=== PATIENT | female | born 1980 | race Caucasian/White ===

== ENCOUNTER 2018-04-07 21:55 | Inpatient (IN) | payer MEDICAID, SELFPAY ==
[2018-04-07 22:21] VITALS: BMI 34.4
[2018-04-07 22:51] LABS: Hematocrit 41.9 % (37-47); Hemoglobin 14.2 g/dl (12.0-15.0); Mean Corp Hgb Conc 33.9 g/gl (32-36); Mean Corpuscular Hgb 27.1 pg (27.0-32.0); Mean Platelet Vol. 12.1 fl (6.2-12.0); Platelet Count 207 K/mm3 (150-450); RBC Distribution Width CV 12.8 % (11.6-14.6); RBC Distribution Width SD 36.7 fl (35.1-43.9); Red Blood Count 5.24 M/mm3 (4.2-5.4)
[2018-04-07 22:54] LABS: Scan Indicated on CBC? Y/N NO
[2018-04-07] MEDS: Oxytocin 30 units/NS 500 ml 30 UNITS/500 ML IV.SOLN 334 UNITS IV (23:04)
[2018-04-07] MEDS: Methylergonovine 0.2 MG/ML Ampul IM (23:09)
--- NOTE | 2018-04-07 23:12 | PCM.HP.OB ---
History Date of Admission: 04/07/18 Final TEHRESA: 04/04/18 Final THERESA Source: US <20 weeks Gestational age: 40 Weeks and 3 Days History of this : This is a 37 year-old, , at 40.3 weeks gestational age c/o contractions since 8:30pm - on arrival SROM with Meconium and found to be 5cm- pt quickly progressed to fully dilated. Allergies No Known Allergies Allergy (Verified 10/29/15 09:06) Home Medications: Home Medications Amoxicillin 500 mg PO Q8 #30 tablet 07/04/14 Hydrocodone Bitart/Apap 5-325 [[place] 5/325] 1 - 2 tablet PO Q4H PRN PRN #20 tablet 07/04/14 Naproxen [Naprosyn] 500 mg PO BID PRN #20 tablet 10/29/15 Smoking Status: Current some day smoker Alcohol: None Number of Fetus(es): 1 Heart Tracins TOCO Analysis: palpable q2-3 History Past Pregnancies: Past Pregnancies Delivery Date Name GA/Weeks Outcome Route Weight Gender Labor Length Anesthesia Delivery Location Provider FOB Labs: A-, GBS neg, HIV neg, HEPB neg, rub imm, syphilis neg Expected Infant Delivery Method: Spontaneous Vaginal Physical Exam General: Alert, Oriented x3 Abdomen: Soft, Gravid Neurological: Cranial nerves II-XII grossly intact 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
--- NOTE | 2018-04-07 23:17 | HP.PCM_ITS ---
History Date of Admission: 04/07/18 Final THERESA: 04/04/18 Final THERESA Source: US <20 weeks Gestational age: 40 Weeks and 3 Days History of this : This is a 37 year-old, , at 40.3 weeks gestational age c/o contractions since 8:30pm - on arrival SROM with Meconium and found to be 5cm- pt quickly progressed to fully dilated. Allergies No Known Allergies Allergy (Verified 10/29/15 09:06) Home Medications: Home Medications Amoxicillin 500 mg PO Q8 #30 tablet 07/04/14 Hydrocodone Bitart/Apap 5-325 [[place] 5/325] 1 - 2 tablet PO Q4H PRN PRN #20 tablet 07/04/14 Naproxen [Naprosyn] 500 mg PO BID PRN #20 tablet 10/29/15 Smoking Status: Current some day smoker Alcohol: None Number of Fetus(es): 1 Heart Tracins TOCO Analysis: palpable q2-3 History Past Pregnancies: Past Pregnancies Delivery Date Name GA/Weeks Outcome Route Weight Gender Labor Length Anesthesia Delivery Location Provider FOB Labs: A-, GBS neg, HIV neg, HEPB neg, rub imm, syphilis neg Expected Infant Delivery Method: Spontaneous Vaginal Physical Exam General: Alert, Oriented x3 Abdomen: Soft, Gravid Neurological: Cranial nerves II-XII grossly intact 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
--- NOTE | 2018-04-07 23:17 | PCM.OB.VAG ---
Vaginal Delivery Maternal Presentation: Active Labor, Spontaneous Rupture of Membranes Amniotic Membrane Rupture Type: Spontaneous Amniotic Fluid Description: Lightly stained meconium Final THERESA: 04/04/18 Gestational age: 40 Weeks and 3 Days Date of Procedure: 04/07/18 Pre-Operative Diagnosis: term , SROM, spontaneous labor Post-Operative Diagnosis: same, live female Surgery/ Procedure Performed: Spontaneous Vaginal Delivery Type of Anesthesia: None Description of Procedure: On my arrival patient was found to be complete- Pt with good maternal efforts for pushing- delivered with compound presentation noted. No complication with delivery. Infant vigorous at . Delayed cord clamping performed. Presentation: Vertex Placental Delivery Description: Spontaneous Placenta Disposition: [facility] Cord Vessel Description: 3 Vessels Nuchal Cord Compression: Without compression Cord Entanglement: None Estimated Blood Loss: 400 Infant A gender: Female (1 minute): 8 (5 minute): 9 Episiotomy Description: None Laceration: None Medications given after delivery: IV Pitocin, IM Methergin Complications: None
--- NOTE | 2018-04-07 23:30 | DCINST_ITS ---
Discharge Diet: No Restrictions Discharge Activity: Return to Normal Activity, May not drive while taking narcotic pain medications., May Shower May resume sexual activity in: 4-6 weeks Additional Activity Instructions:: Nothing in the vagina for 4-6 weeks. You may return to work/school in 6 weeks. Call your doctor if your incision/area has: Continuous Slow Oozing, Sudden Increased Bleeding, Increased Pain/ Swelling, Increased Redness, Foul Smelling Discharge Additional Instructions: If you experience any of the following, contact your healthcare provider. * Bleeding that soaks a pad every hour for 2 hours * Fever 100.4 or higher * Unrelieved incision or abdominal pain * Swelling, redness, discharge or bleeding from your incision or episiotomy site * Your incision begins to separate * Problems urinating (including inability to urinate or burning while urinating) . * Visual changes * Severe headache * Flu-like symptoms * Pain or redness in one of both of your breasts * Pain, warmth, tenderness or swelling in your legs, especially the calf area * Frequent nausea and vomiting * Symptoms of depression or anxiety If you experience any of the following, call 911 or go to the nearest Emergency Room. * Chest pain * Problems breathing * Seizure activity * Partial or complete paralysis of a body part, slurred speech, weakness or drooping of the face, or a sudden inability to walk or hold your balance Allergies/Adverse Reactions: Allergies No Known Allergies Allergy (Verified 10/29/15 09:06) Medications to take at Discharge Naproxen [Naprosyn] 250 - 500 mg PO Q8H PRN PRN #30 tab 04/07/18 The following prescriptions were given: Naproxen [Naprosyn] 250 - 500 mg PO Q8H PRN PRN #30 tab PRN Reason: MILD PAIN (1-310) When: Call to make an appointment with your doctor in 6 weeks. If you had elevated Blood Pressure or 4th degree laceration you will need to be seen in 2 weeks. Primary Care Physician: Care Physician,No Primary [Primary Care Provider] - Test Results: Test results from this visit will be discussed in further detail at your follow- up appointment, if applicable.
[2018-04-07] MEDS: Oxytocin 30 units/NS 500 ml 30 UNITS/500 ML IV.SOLN 167 UNITS IV (23:35)
[2018-04-08 04:00] VITALS: BP 138/78; PULSE 70; RESP 16; TEMP 36.4; O2SAT 99
[2018-04-08] MEDS: Naproxen 250 MG Tablet PO ×2 (05:20→13:16)
--- NOTE | 2018-04-08 07:57 | PCM.PN.OB ---
Subjective: pt seen at bedside, doing well. lochia mild. bottle feeding. - Physical Exam General: Alert, Oriented x3 Abdomen: Soft, Non Tender, Non-Distended, - - fundus firm. Extremities: No Calf Tenderness Vital Signs Temp Pulse Resp BP Pulse Ox 97.6 F L 70 16 138/78 H 99 04/08/18 04:00 04/08/18 04:00 04/08/18 04:00 04/08/18 04:00 04/08/18 04:00 Oxygen Delivery Method Room Air Weight: 99.79 kg Body Mass Index (BMI) 34.4 Laboratory Tests Past 24 Hrs 04/07/18 04/07/18 04/08/18 22:30 22:30 02:00 WBC 18.0 H RBC 5.24 Hgb 14.2 Hct 41.9 MCV 80.0 L MCH 27.1 MCHC 33.9 RDW 12.8 RDW Differential 36.7 Plt Count 207 MPV 12.1 H Blood Type A NEGATIVE Antibody Screen NEGATIVE Screen NEGATIVE Baby's Blood Type O POSITIVE Baby's RUBIA NEGATIVE Medical Necessity - Tobacco Use Smoking Status: Former smoker Assessment/Plan PPD#1, doing well routine care pain mgmt
[2018-04-08 09:00] VITALS: BP 132/76; PULSE 62; RESP 20; TEMP 36
[2018-04-08] MEDS: Acetaminophen 500 MG Tablet 1000 MG PO ×2 (09:15→17:51)
[2018-04-08 13:20] VITALS: BP 132/75; PULSE 65; RESP 18; TEMP 36.3
[2018-04-08 16:30] VITALS: BP 122/75; PULSE 73; RESP 18; TEMP 36.2
[2018-04-08 21:00] VITALS: BP 131/85; PULSE 62; RESP 16; TEMP 36.2; O2SAT 99
[2018-04-09 03:00] VITALS: BP 124/76; PULSE 64; RESP 18; TEMP 36.8; O2SAT 100
[2018-04-09 08:00] VITALS: BP 127/85; PULSE 68; RESP 16; TEMP 36.3
--- NOTE | 2018-04-09 09:15 | PCM.PN.OB ---
Subjective: No complaints - Physical Exam General: Alert, Oriented x3 Abdomen: Soft, Non Tender - ff mid & below umb, Non-Distended Extremities: No Calf Tenderness Vital Signs Temp Pulse Resp BP Pulse Ox 98.2 F 64 18 124/76 H 100 04/09/18 03:00 04/09/18 03:00 04/09/18 03:00 04/09/18 03:00 04/09/18 03:00 Oxygen Delivery Method Room Air Weight: 220 lb Body Mass Index (BMI) 34.4 Medical Necessity - Tobacco Use Smoking Status: Former smoker Assessment/Plan PPD#2 D/c home
[2018-04-09] MEDS: Naproxen 250 MG Tablet PO (10:19)
[2018-04-09 12:00] VITALS: BP 120/80; PULSE 70; RESP 18; TEMP 36.6
[2018-04-09 13:15] VITALS: BP 120/80; PULSE 70; RESP 18; TEMP 36.6
== END 2018-04-09 13:15 | disposition home or self-care (01) | DRG 373 ==
PROVIDERS: Admitting Provider Obstetrics & Gynecology; Visit Provider Obstetrics & Gynecology
DX: O42.02 Full-term premature rupture of membranes, onset of labor within 24 hours of rupture (principal); O77.0 Labor and delivery complicated by meconium in amniotic fluid; Z3A.40 40 weeks gestation of pregnancy; Z37.0 Single live birth; Z87.891 Personal history of nicotine dependence
CPT/HCPCS: 59025; 59050; 85027; 85461; 86850; 86900; 90384; 99218; G0378; J2790

== ENCOUNTER 2018-06-24 05:45 | Day surgery (SDC) | payer MEDICAID, SELFPAY ==
[2018-06-24 06:07] LABS: Internal QC Validated? YES +Cl - CLEAR BKGD
[2018-06-24 06:08] LABS: Pregnancy, Urine Negative Negative
[2018-06-24 06:14] VITALS: BP 128/74; PULSE 70; RESP 16; TEMP 36.8; O2SAT 100; BMI 32.5
[2018-06-24 07:20] LABS: Hematocrit 40.1 % (37-47); Hemoglobin 12.8 g/dl (12.0-15.0); Mean Corp Hgb Conc 31.9 g/gl (32-36); Mean Corpuscular Hgb 26.4 pg (27.0-32.0); Mean Corpuscular Volume 82.7 fL (81-99); Mean Platelet Vol. 10.8 fl (6.2-12.0); Platelet Count 233 K/mm3 (150-450); RBC Distribution Width CV 12.4 % (11.6-14.6); RBC Distribution Width SD 37.6 fl (35.1-43.9); Red Blood Count 4.85 M/mm3 (4.2-5.4); White Blood Count 7.4 K/mm3 (4.4-11.0)
[2018-06-24 07:22] LABS: Scan Indicated on CBC? Y/N NO
--- NOTE | 2018-06-24 07:30 | FALS_PTH ---
PATIENT: CHANNING TURCIOS LOC: [facility] [place] U#:[id number] AGE/SX: 38/F ROOM: RE06/24/[address]: Dr. Aimee Grajeda, MDDOB: 1980 BED: DIS: 06/24/2018 SPEC #: [id number] RECD: 06/24/18 10:40 STATUS: MARK RENEE #: [id number] LEE: 06/24/18 07:[address]: Aimee Grajeda DEPT: SURGICAL PATHOLOGY RECD BY: Vicente Newsome ENTERED: 06/24/18 11:32 SP TYPE: FALL TUBES OTHR DR: Lynn Primary Care Phys Tissues: Fallopian tube Procedures: Surgery Specimen Level IV HEADER OPERATION: Laparoscopic salpingectomy PRE-OP DIAGNOSIS: Desires sterilization TISSUE SUBMITTED: Bilateral fallopian tubes MICROSCOPIC DIAGNOSIS Bilateral fallopian tubes, salpingectomy: Bilateral fallopian tubes including fimbrial ends with focal mild to moderate acute and chronic inflammation. ZURI:alma 06/25/18 COMMENT Clinical correlation and appropriate follow up are necessary. MICROSCOPIC DESCRIPTION Slides are reviewed. GROSS DESCRIPTION Received is one container labeled with the patient's name and designated bilateral fallopian tubes. The specimen consists of bilateral fallopian tubes including fimbrial ends. One of the fallopian tubes measures 5 cm in length and 0.5 cm in diameter. Sections reveal unremarkable cut surfaces. The second fallopian tube is received in two pieces measuring 1.5 cm in length and 4.5 cm in length and 0.5 cm in diameter. Sections reveal unremarkable cut surfaces. Picture Framer sections are submitted in two cassettes with each cassette containing one fallopian tube. / ZURI:alma 06/24/18 TC:2 CPT: 55600 x2
[2018-06-24] MEDS: Bupivacaine Mpf 0.5% 30 ML VIAL (07:58)
--- NOTE | 2018-06-24 08:01 | PCM.OPRPT ---
Report of Operation Date of Procedure: 06/24/18 Pre-Operative Diagnosis: desires sterilization Post-Operative Diagnosis: same Surgery/Procedure Performed:: laparoscopic bilateral salpingectomy Description of Surgical Findings:: normal ovaries and tubes bilaterally. 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 She was then placed in the [facility] stirrups and she was prepped and draped in normal sterile fashion. Bladder was drained prior to the start of procedure approximately 75cc of clear yellow urine was expelled. At this time attention was turned to the vaginal portion where weighted speculum placed at posterior fornix vagina single-tooth tenaculum was used to gently grasp the internal the cervix. uterus was gently sounded to approximately 8cm. Uterine manipulator was placed without difficulty. Legs then placed in parallel with the abdomen the tenaculum and the weighted speculum were removed. 2 towel clamps were placed at umbilicus. After marcaine was injected at umbilicus a small incision was made and a 5 mm trocar was placed under direct visualization. CO2 gas was used to insufflate the intra-abdominal cavity. Upon inspection no gross abnormalities uterus tubes and ovaries appeared to be normal. At this time then the RLQ and LLQ ports were placed again Marcaine was injected small incision was made a knife and the 5 mm trocar was placed. . At this time then tubes were traced back to the fimbriated ends. Ligasure was used to coagulate and ligate along mesosalpinx bilaterally until tubes removed completely. Good hemostasis was appreciated. At this time procedure was deemed complete successful. The gas was desufflated on from the intra-abdominal cavity. The trochars were removed. Skin was closed using 4-0 Monocryl in a subcutaneous fashion. Dermabond glue was placed. Instrument lap and needle counts were correct ?2. The uterine manipulator was removed. Vaginal sweep was performed it was negative. There were no complications anticipated normal postoperative course for this patient. - Complications none - Admit VTE Documentation VTE Present on Admission: Yes VTE Mechan Device Prophylaxis: SCD's VTE Pharm Prophylaxis ordered?: No
--- NOTE | 2018-06-24 08:05 | OP.PCM_ITS ---
Report of Operation Date of Procedure: 06/24/18 Pre-Operative Diagnosis: desires sterilization Post-Operative Diagnosis: same Surgery/Procedure Performed:: laparoscopic bilateral salpingectomy Description of Surgical Findings:: normal ovaries and tubes bilaterally. 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 She was then placed in the [facility] stirrups and she was prepped and draped in normal sterile fashion. Bladder was drained prior to the start of procedure approximately 75cc of clear yellow urine was expelled. At this time attention was turned to the vaginal portion where weighted speculum placed at posterior fornix vagina single-tooth tenaculum was used to gently grasp the internal the cervix. uterus was gently sounded to approximately 8cm. Uterine manipulator was placed without difficulty. Legs then placed in parallel with the abdomen the tenaculum and the weighted speculum were removed. 2 towel clamps were placed at umbilicus. After marcaine was injected at umbilicus a small incision was made and a 5 mm trocar was placed under direct visualization. CO2 gas was used to insufflate the intra-abdominal cavity. Upon inspection no gross abnormalities uterus tubes and ovaries appeared to be normal. At this time then the RLQ and LLQ ports were placed again Marcaine was injected small incision was made a knife and the 5 mm trocar was placed. . At this time then tubes were traced back to the fimbriated ends. Ligasure was used to coagulate and ligate along mesosalpinx bilaterally until tubes removed completely. Good hemostasis was appreciated. At this time procedure was deemed complete successful. The gas was desufflated on from the intra-abdominal cavity. The trochars were removed. Skin was closed using 4-0 Monocryl in a subcutaneous fashion. Dermabond glue was placed. Instrument lap and needle counts were correct ?2. The uterine manipulator was removed. Vaginal sweep was performed it was negative. There were no complications anticipated normal postoperative course for this patient. - Complications none - Admit VTE Documentation VTE Present on Admission: Yes VTE Mechan Device Prophylaxis: SCD's VTE Pharm Prophylaxis ordered?: No
--- NOTE | 2018-06-24 08:07 | DCINST_ITS ---
Discharge Diet: No Restrictions, - - Increase fluid intake for 48 hours. Discharge Activity: Return to Normal Activity, May Drive - when you are no longer taking narcotic pain medications., May Shower, May Take a Tub Bath - in 7 days., - - Ambulate often the next week after surgery. May resume sexual activity in: 2 weeks Lifting Restrictions: 25 Additional Activity Instructions:: Nothing in the vagina for the next 5 days. Call your doctor if your incision/area has: Continuous Slow Oozing, Sudden Increased Bleeding, Increased Pain/ Swelling, Increased Redness, Foul Smelling Discharge, Swelling at the incision site Call your doctor if you observe: Fever of 101 or Higher Cleanse incision/area with: - - you have skin glue over your incision sites- may let soap and water run over them dab to dry. do not pick off glue Allergies/Adverse Reactions: Allergies No Known Allergies Allergy (Verified 10/29/15 09:06) Medications to take at Discharge NK 06/21/18 Primary Care Physician: Care Physician,No Primary [Primary Care Provider] - Test Results: Test results from this visit will be discussed in further detail at your follow- up appointment, if applicable. Please Follow Up With: Aimee Grajeda MD When: as scheduled 2 weeks post op
[2018-06-24 08:13] VITALS: BP 130/76; BP 130/79; PULSE 85; RESP 14; TEMP 36.3; O2SAT 97
[2018-06-24 08:20] VITALS: BP 127/69; BP 130/76; PULSE 93; RESP 16; O2SAT 96
[2018-06-24 08:30] VITALS: BP 120/73; BP 130/76; PULSE 81; RESP 16; O2SAT 98
[2018-06-24 08:46] VITALS: BP 123/67; BP 130/76; PULSE 62; RESP 14; TEMP 36.3; O2SAT 97
[2018-06-24 10:39] VITALS: BP 124/78; BP 130/76; PULSE 64; RESP 16; TEMP 36.3; O2SAT 100
== END 2018-06-24 10:46 | disposition home or self-care (01) ==
LOC: SDC 05:46 → AC 05:47
PROVIDERS: Referring Provider Obstetrics & Gynecology; Visit Provider Obstetrics & Gynecology
PROC: (CPT 58661; principal; 2018-06-24 07:15)
DX: Z30.2 Encounter for sterilization (principal); Z85.820 Personal history of malignant melanoma of skin; Z87.891 Personal history of nicotine dependence
CPT/HCPCS: 00840; 58661; 36415; 81025; 85027; 88302; 88305; J7120; J2405

== ENCOUNTER 2021-12-24 06:43 | Emergency (ER) | payer MEDICAID, SELFPAY ==
[2021-12-24 06:45] VITALS: BP 148/87; PULSE 90; RESP 16; TEMP 36.4; O2SAT 99; BMI 38.9
[2021-12-24 07:00] LABS: Mucous, Urine 0 SEEN /hpf (<or=2+); Red Blood Cells-Urine 0 SEEN /hpf (0-5)
[2021-12-24 07:04] LABS: Absolute Lymphocyte Count 2.18 X10^3/uL (0.83-4.51); Absolute Neutrophil Count 5.6 X10^3/uL (2.0-7.7); Basophil# 0.06 X10^3/uL; Basophil% 0.7 % (0-1); Eosinophil# 0.11 X10^3/uL; Eosinophils% 1.2 % (0-5); Hematocrit 44.2 % (37-47); Hemoglobin 14.2 g/dL (12.0-15.0); Lymphocyte # 2.18 X10^3/ul (0.83-4.51); Lymphocyte % 24.5 % (19-41); Mean Corp Hgb Conc 32.1 g/dL (32-36); Mean Corpuscular Hgb 26.2 pg (27.0-32.0); Mean Corpuscular Volume 81.4 fL (81-99); Mean Platelet Vol. 11.1 fl (6.2-12.0); Monocyte# 0.95 X10^3/uL; Monocyte% 10.7 % (0-10); NRBC Flagged by Analyzer 0 % (0-5); Neutrophil # 5.56 X10^3/uL (2.7-7.7); Neutrophil % 62.6 % (47-70); Platelet Count 276 K/mm3 (150-450); RBC Distribution Width CV 12.6 % (11.6-14.6); RBC Distribution Width SD 37.3 fl (35.1-43.9); Red Blood Count 5.43 M/mm3 (4.2-5.4); White Blood Count 8.9 K/mm3 (4.4-11.0)
[2021-12-24 07:06] LABS: Color, Urine Yellow (Yellow); Glucose, Dipstick Normal (Normal); Ketone-Dipstick Negative (Negative); Leukocyte Esterase-Dipstick 500 /ul (Negative); Nitrite-Dipstick Negative (Negative); Occult Blood-Urine Negative /ul (Negative); Protein-Dipstick Negative (Negative); Specific Gravity, Urine 1.015 (1.002-1.030); Urine Bilirubin Dipstick Negative (Negative); Urine Clarity Clear (Clear); Urine Urobilinogen Normal (Normal)
--- NOTE | 2021-12-24 07:09 | EX.ED.DYSGE1 ---
HPI History of Present Illness Chief Complaint: Abd Pain Informant: patient Narrative Narrative: Patient presents with lower abdominal pain. About a week ago, this patient had lower abdominal pain and right sided back pain. She did not have frequency urgency or dysuria. She was seen in urgent care. A urinalysis was done. They treated her as a UTI with Bactrim. Patient finished antibiotics. The pain is no longer in the back but it is down the lower and now it is getting sharper. When the pain increases she gets nausea but no vomiting. She still has no frequency urgency or dysuria or change in color or odor of urine. She has no discharge. Last menstrual cycle was about 3 weeks ago. She has had tubal ligation. She has never had kidney stones. She has no abdominal surgery other than the ligation as above. She has not had fevers. Nothing makes this better or worse. No change in bowel habits. She states the pain is sharp and stabbing. [facility] Medical History (Updated 12/24/21 @ 08:[address] Del Roberson MD) Malignant melanoma Home Medications naproxen 500 mg PO BID #20 tab 12/24/21 [Rx Last Taken Unknown] Allergy/AdvReac Type Severity Reaction Status Date / Time No Known Allergies Allergy Verified 12/24/21 06:44 Social History Smoking Status: Never smoker ROS ROS ED Constitutional Constitutional ED: Denies chills or fever(s) ENT ENT ED: Denies rhinorrhea Cardiovascular Cardiovascular: Denies chest pain or palpitations Respiratory/Chest Respiratory/Chest: Denies cough or dyspnea Gastrointestinal Gastrointestinal: Reports abdominal pain and nausea; Denies constipation, diarrhea, melena or vomiting Genitourinary Genitourinary ED: Denies dysuria, hematuria or urinary frequency Musculoskeletal Musculoskeletal: Reports back pain; Denies arthralgias or neck pain Integumentary Denies rash Neurologic Neurologic: Denies paresthesias or weakness Psychiatric Psychiatric: Denies anxiety or depression Endocrine Endocrinology: Denies polyuria Allergic/Immunologic Allergic/Immunologic ED: Denies urticaria EXAM Physical Exam Const Vital Signs: 12/24/21 06:45 Temperature 97.5 F L Temperature Source Temporal Pulse Rate 90 Respiratory Rate 16 Blood Pressure 148/87 H Blood Pressure Mean 107 Pulse Ox 99 Oxygen Delivery Method Room Air Positive well nourished, well developed and obese General Appearance ED: well developed and NAD; Negative for cyanotic or diaphoretic Nutritional Appearance: obese HEENT Reports moist mucous membranes Negative for trauma Eyes General Eye ED: Negative for pale conjunctiva or scleral icterus Neck no JVD Chest Wall inspection of chest normal Resp normal respiratory effort and clear to auscultation bilaterally Effort and Inspection: Negative for pain with movement Auscultation: Negative for rales, rhonchi or wheezes Cardio regular rate and regular rhythm GI normal to inspection, nondistended, normoactive bowel sounds and non-distended GI Narrative: There is very mild tenderness toward the right lower quadrant but no rebound or guarding. There is slight suprapubic tenderness. No CVA tenderness but she is also not having pain in her back anymore. Palpation: soft Back/Spine no CVA tenderness Extremity normal to inspection Neuro oriented x3 Sensorium / Orientation: alert Skin no rashes or lesions noted MDM MDM MDM Narrative Medical decision making narrative: Patient's blood work showed essentially normal CBC. Electrolytes are also unremarkable. Urine shows only 0-5 white cells was clear. No convincing evidence of UTI and she has no symptoms of UTI. She also just finished antibiotics. was negative. CT scan showed a 2.6 cm right adnexal cyst with some free fluid. The patient has been having pain in that area for a week or so. It got a little sharper. I am wondering if she may have had just recent small rupture of the cyst. She does not look uncomfortable enough to have torsion. She is also already had a tubal ligation. Patient is rechecked and she is quite comfortable. I think we can get her home with nonsteroidals and follow-up. We discussed returning with worsening pain, fevers, vomiting or other concerns. Lab Data Attestation: I reviewed the patient's lab results. Labs: Laboratory Results - last 24 hr 12/24/21 12/24/21 12/24/21 06:50 06:50 06:50 WBC 8.9 RBC 5.43 H Hgb 14.2 Hct 44.2 MCV 81.4 MCH 26.2 L MCHC 32.1 RDW Std Deviation 37.3 RDW Coeff of Kinza 12.6 Plt Count 276 MPV 11.1 Immature Gran % (Auto) 0.300 Neut % (Auto) 62.6 Lymph % (Auto) 24.5 [place] % (Auto) 10.7 H Eos % (Auto) 1.2 Baso % (Auto) 0.7 Absolute Neuts (auto) 5.6 Absolute Lymphs (auto) 2.18 Nucleated RBC % 0 Sodium 137 Potassium 4.0 Chloride 108 H Carbon Dioxide 25.0 Anion Gap 4 L BUN 13 Creatinine 0.92 Estim Creat Clear Calc 79.84 Est GFR (MDRD) Af Amer 87 Est GFR (MDRD) Non-Af 72 BUN/Creatinine Ratio 14.1 Glucose 93 Calcium 9.2 Serum , Qual Urine Color Yellow Urine Clarity Clear Urine pH 8.0 Ur Specific Gordon 1.015 Urine Protein Negative Urine Glucose (UA) Normal Urine Ketones Negative Urine Occult Blood Negative Urine Nitrite Negative Urine Bilirubin Negative Urine Urobilinogen Normal Ur Leukocyte Esterase 500 H Urine RBC 0 SEEN Urine WBC 0-5 SEEN Ur Squamous Epith Cells 0-5 SEEN Amorphous Sediment 1+ Urine Bacteria 1+ Urine Mucus 0 SEEN 12/24/21 06:50 WBC RBC Hgb Hct MCV MCH MCHC RDW Std Deviation RDW Coeff of Kinza Plt Count MPV Immature Gran % (Auto) Neut % (Auto) Lymph % (Auto) [place] % (Auto) Eos % (Auto) Baso % (Auto) Absolute Neuts (auto) Absolute Lymphs (auto) Nucleated RBC % Sodium Potassium Chloride Carbon Dioxide Anion Gap BUN Creatinine Estim Creat Clear Calc Est GFR (MDRD) Af Amer Est GFR (MDRD) Non-Af BUN/Creatinine Ratio Glucose Calcium Serum , Qual NEGATIVE Urine Color Urine Clarity Urine pH Ur Specific Gordon Urine Protein Urine Glucose (UA) Urine Ketones Urine Occult Blood Urine Nitrite Urine Bilirubin Urine Urobilinogen Ur Leukocyte Esterase Urine RBC Urine WBC Ur Squamous Epith Cells Amorphous Sediment Urine Bacteria Urine Mucus Radiography Diagnostic Testing: Clinical Impression(s) from Imaging Studies Abdomen/Pelvis CT 12/24/21 07:35 IMPRESSION: Right adnexal cyst with a small amount of pelvic free fluid. This is likely physiologic. No bowel obstruction or inflammation. Normal appendix. No urinary calculi. No hydronephrosis. Electronically Signed: Alfonzo Cloud MD at 8:14 EDT , Discharge Plan Triage Chief Complaint: Abd Pain ED Provider: Del Roberson Dx/Rx/DC Orders Clinical Impression: Cyst of right ovary, Abdominal pain Instructions: ED Ovarian Cyst Prescriptions: New naproxen 500 MG tablet 500 mg PO BID Qty: 20 RF: 0 Primary Care Provider: Care Physician,No Primary Referrals: Saba Goldberg MD [STAFF PHYSICIAN] - 3-5 Days Care Physician,No Primary [Primary Care Provider] - Disposition Disposition: Home, Self Care
[2021-12-24 07:10] LABS: Amorphous Sediment 1+; Bacteria 1+ /hpf (None Seen); Squamous Epithelial Cells - UA 0-5 SEEN /hpf (5-10); White Blood Cells 0-5 SEEN /hpf (0-5)
[2021-12-24 07:21] LABS: Anion Gap 4 (5-15); BUN 13 mg/dL (7-18); BUN/Creat Ratio 14.1 RATIO (10-20); Calcium,Total 9.2 mg/dL (8.5-10.1); Chloride 108 mmol/L (98-107); Creatinine, Serum 0.92 mg/dL (0.55-1.02); EST Glomerular Filtration Rate 72 mL/min (>60); Est Glom Filt Rate - Afr Amer 87 mL/min (>60); Estimated Creatinine Clearance 79.84 ml/min; Glucose 93 mg/dL (74-106); Sodium Level 137 mmol/L (136-145)
[2021-12-24] MEDS: Ketorolac 15 MG/ML Vial IV (07:25)
[2021-12-24] MEDS: Ondansetron 4 MG/2 ML Vial IV (07:25)
[2021-12-24 07:27] LABS: Internal QC Validated? YES +Cl - CLEAR BKGD; Pregnancy, Serum, hCG Quali. NEGATIVE Negative
--- NOTE | 2021-12-24 07:35 | CT_ITS ---
STUDY: CT ABDOMEN AND PELVIS WITHOUT CONTRAST REASON FOR EXAM: Female, 41 years old. Pain RADIATION DOSAGE (If Supplied By Facility): CTDIvol = ( 21.76 ) mGy, DLP = ( 1130.58 ) mGycm TECHNIQUE: Transaxial images were obtained from the dome of the diaphragm to the symphysis pubis without oral contrast, and without intravenous contrast. Sagittal and coronal images were reconstructed. Individualized dose optimization techniques were used for this CT. COMPARISON: None. FINDINGS: Evaluation of the abdominal viscera is limited in the absence of intravenous contrast. The visualized lung bases are clear. The visualized portions of the heart and pericardium are within normal limits. There are no calcified gallstones present. The liver demonstrates an unremarkable unenhanced appearance. The spleen is normal in size. The pancreas demonstrates an unremarkable unenhanced appearance. The adrenal glands are within normal limits. There are no renal or ureteral stones. There is no hydronephrosis. Normal visualized stomach. There is no bowel obstruction or inflammation. The appendix is visualized and appears normal. The aorta is normal in caliber. There is a 2.6 cm cyst in the right adnexa. There is a small amount of pelvic free fluid. There is no free air, fluid collection or lymphadenopathy. There are no destructive osseous lesions. CT/Abdomen/Pelvis without Cont IMPRESSION: Right adnexal cyst with a small amount of pelvic free fluid. This is likely physiologic. No bowel obstruction or inflammation. Normal appendix. No urinary calculi. No hydronephrosis. Electronically Signed: Alfonzo Cloud MD at 8:14 EDT ,
[2021-12-24 08:38] VITALS: BP 127/86; PULSE 78; RESP 16; O2SAT 98
== END 2021-12-24 08:43 | disposition home or self-care (01) ==
PROVIDERS: Emergency Provider Emergency Medicine; Visit Provider Emergency Medicine
DX: N83.201 Unspecified ovarian cyst, right side (principal); R10.30 Lower abdominal pain, unspecified; E66.9 Obesity, unspecified
CPT/HCPCS: 74176; 80048; 81001; 84703; 85025; 96361; 96374; 96375; 99282; J7030; A4216; J2405